=== PATIENT | female | born 1955 | race African-American/Black ===

== ENCOUNTER 2018-08-11 14:09 | Emergency (ER) | payer MEDICARE, OTHER ==
[~2018-08-11 14:09] MED LIST: ALPR2TAB2 PO; NIFE30TA91 PO
[2018-08-11 14:33] LABS: BASOPHILS % (AUTO) 0.3 % (0.0-5.0); EOSINOPHILS % (AUTO) 0.3 % (0.0-8.0); HEMATOCRIT 39.6 % (36-48); LYMPHOCYTES % (AUTO) 15.9 % (21.0-51.0); MEAN CORPUSCULAR HEMOGLOBIN 31.5 pg (27.0-33.0); MEAN CORPUSCULAR HGB CONC 34.2 g/dL (32.0-36.0); MONOCYTES % (AUTO) 8.4 % (3.0-13.0); NEUTROPHILS % (AUTO) 75.1 % (40.0-77.0); NUCLEATED RED BLOOD CELLS 0.1 % (0.0-0.19); PLATELET COUNT (AUTO) 300 K/uL (130-400); RED BLOOD CELL COUNT(AUTO) 4.31 MIL/uL (4.00-5.50); RED CELL DISTRIBUTION WIDTH 12.3 % (11.0-15.5); WHITE BLOOD COUNT (AUTO) 9.2 K/uL (4.8-10.8)
[2018-08-11] MEDS ORDERED: ONDANSETRON ODT 4 MG TAB ONE (14:34)
[2018-08-11] MEDS ORDERED: IPRATROPIUM/ALBUTEROL SULFATE 3 ML SOLUTION IH ONE (14:58)
[2018-08-11 15:03] LABS: CREATININE 0.6 mg/dL (0.5-1.5); POTASSIUM 3.3 mmol/L (3.5-5.1)
[2018-08-11 15:07] LABS: ALBUMIN 3.4 g/dL (3.5-5.0); BILIRUBIN,TOTAL 0.4 mg/dL (0.2-1.0)
[2018-08-11] MEDS ORDERED: GUAIFENESIN-CODEINE 5 ML SYRUP ONE (15:08)
[2018-08-11] MEDS ORDERED: METHYLPREDNISOLONE SOD SUCC 125MG/2ML VIAL ONE (15:08)
== END 2018-08-11 17:09 | disposition home or self-care (01) ==
LOC: EDH 14:09
DX: J20.9 Acute bronchitis, unspecified (principal); I10 Essential (primary) hypertension; F41.9 Anxiety disorder, unspecified; Z79.899 Other long term (current) drug therapy; Z72.0 Tobacco use
CPT/HCPCS: 36415; 71046; 80053; 83690; 85025; 87804 ×2; 94640; 96372; 99285; J2930

== ENCOUNTER 2018-08-21 23:29 | Emergency (ER) | payer OTHER ==
[2018-08-22] MEDS ORDERED: IPRATROPIUM/ALBUTEROL SULFATE 3 ML SOLUTION IH ONE (00:22)
[2018-08-22 00:31] LABS: BASOPHILS % (AUTO) 0.7 % (0.0-5.0); HEMATOCRIT 38.6 % (36-48); MEAN CORPUSCULAR HEMOGLOBIN 31.8 pg (27.0-33.0); MEAN CORPUSCULAR HGB CONC 33.8 g/dL (32.0-36.0); MONOCYTES % (AUTO) 5.7 % (3.0-13.0); NEUTROPHILS % (AUTO) 70.6 % (40.0-77.0); PLATELET COUNT (AUTO) 326 K/uL (130-400); RED BLOOD CELL COUNT(AUTO) 4.11 MIL/uL (4.00-5.50); RED CELL DISTRIBUTION WIDTH 12.6 % (11.0-15.5); WHITE BLOOD COUNT (AUTO) 10.7 K/uL (4.8-10.8)
[2018-08-22] MEDS ORDERED: CEPHALEXIN 500 MG CAPSULE ONE (00:31)
[2018-08-22] MEDS ORDERED: KETOROLAC TROMETHAMINE 60 MG/2 ML VIAL ONE (00:31)
[2018-08-22 00:51] LABS: CREATININE 0.7 mg/dL (0.5-1.5); POTASSIUM 4.2 mmol/L (3.5-5.1)
[2018-08-22 00:57] LABS: ALBUMIN 3.3 g/dL (3.5-5.0); BILIRUBIN,TOTAL 0.2 mg/dL (0.2-1.0); TOTAL PROTEIN, SERUM 6.9 g/dL (6.0-8.3)
[2018-08-22 01:33] LABS: B-TYPE NATRIURETIC PEPTIDE 42 pg/mL (0-100)
== END 2018-08-22 04:00 | disposition home or self-care (01) ==
LOC: EDH 23:29
DX: J45.901 Unspecified asthma with (acute) exacerbation (principal); H65.02 Acute serous otitis media, left ear; R51 Headache; I10 Essential (primary) hypertension; Z72.0 Tobacco use
CPT/HCPCS: 36415; 71045; 80053; 83880; 84484; 85025; 93005; 94640; 96372; 99284; J1885

== ENCOUNTER 2019-01-31 12:35 | Inpatient (IN) | payer OTHER ==
[~2019-01-31] VITALS: Ht 175.3 cm; Wt 62.0 kg
[2019-01-31] MEDS ORDERED: MORPHINE SULFATE 4 MG/1ML SYG ONE (13:18)
[2019-01-31 13:52] LABS: CREATININE 0.6 mg/dL (0.5-1.5); INR 0.95 (0.85-1.15); PARTIAL THROMBOPLASTIN TIME 32.7 SEC (26.3-35.5)
[2019-01-31 13:54] LABS: BASOPHILS % (AUTO) 0.4 % (0.0-5.0); EOSINOPHILS % (AUTO) 0.6 % (0.0-8.0); HEMATOCRIT 37.3 % (36-48); LYMPHOCYTES % (AUTO) 24.7 % (21.0-51.0); MEAN CORPUSCULAR HEMOGLOBIN 32.1 pg (27.0-33.0); MEAN CORPUSCULAR HGB CONC 33.6 g/dL (32.0-36.0); MEAN CORPUSCULAR VOLUME 95.6 fL (79-99); MONOCYTES % (AUTO) 7.2 % (3.0-13.0); NEUTROPHILS % (AUTO) 67.1 % (40.0-77.0); PLATELET COUNT (AUTO) 235 K/uL (130-400); RED CELL DISTRIBUTION WIDTH 13.8 % (11.0-15.5)
[2019-01-31 13:54] LABS: APPEARANCE,URINE Clear (CLEAR); BILIRUBIN,URINE Negative (NEGATIVE); COLOR,URINE Yellow (YELLOW); GLUCOSE, URINE (UA) Negative (NEGATIVE); KETONES,URINE Negative (NEGATIVE); LEUKOCYTE ESTERASE ,URINE Negative (NEGATIVE); NITRATE,URINE Negative (NEGATIVE); OCCULT BLOOD,URINE Negative (NEGATIVE); PROTEIN,URINE Negative (NEGATIVE)
[2019-01-31 13:56] LABS: ALBUMIN 3.5 g/dL (3.5-5.0); BILIRUBIN,TOTAL 0.5 mg/dL (0.2-1.0); TOTAL PROTEIN, SERUM 7.1 g/dL (6.0-8.3)
[2019-01-31] MEDS ORDERED: FENTANYL CITRATE PF 50 MCG/1 ML 2ML VIAL ONE (14:30)
[2019-01-31] MEDS ORDERED: ONDANSETRON HCL 4 MG/2 ML VIAL IVP PRN (15:15)
[2019-01-31] MEDS ORDERED: ALPRAZOLAM 0.25 MG TABLET PO PRN (15:15)
[2019-01-31] MEDS ORDERED: LABETALOL 20 MG/4 ML DISP.SYRIN IV PRN (15:15)
[2019-01-31] MEDS ORDERED: ACETAMINOPHEN 325 MG TAB PO PRN (15:15)
[2019-01-31] MEDS ORDERED: MORPHINE SULFATE 2 MG/ML 1ML SYG ONE (16:36)
[2019-01-31] MEDS ORDERED: ALPRAZOLAM 0.25 MG TABLET ONE (16:36)
[2019-01-31] MEDS: ASPIRIN 81MG TAB.CHEW PO SCH ×2 (17:00→21:46)
[2019-01-31] MEDS: MORPHINE SULFATE 2 MG/ML 1ML SYG IVP PRN ×2 (19:26→21:52)
[2019-01-31] MEDS ORDERED: FLUT16H NASAL (19:52)
[2019-01-31] MEDS ORDERED: ALPR0.5T8 PO (19:52)
[2019-01-31] MEDS ORDERED: IBUP-2077 PO (19:59)
[2019-01-31] MEDS ORDERED: ALBU18HF7 IH (19:59)
[2019-01-31 20:00] VITALS: BP 186/84
[2019-01-31] MEDS ORDERED: IBUPROFEN 800 MG TAB PO PRN (20:30)
[2019-01-31] MEDS: FLUTICASONE PROPIONATE 50MCG/SPRAY 16 GM BOTTLE EN SCH (21:00)
[2019-01-31] MEDS ORDERED: ALPRAZOLAM 0.5 MG TABLET PO SCH (21:00)
[2019-01-31 21:40] VITALS: BP 177/89
[2019-01-31] MEDS: ALPRAZOLAM 0.5 MG TABLET PO SCH (21:46)
[2019-01-31] MEDS: METOPROLOL TARTRATE 25 MG TAB PO SCH (21:47)
[2019-01-31] MEDS: ATORVASTATIN CALCIUM 20 MG TABLET PO SCH (21:47)
[2019-01-31 23:33] VITALS: BP 176/95
--- NOTE | 2019-01-31 23:50 | NUR ---
NOTE REMINDED PATIENT TO START FASTING AFTER MIDNIGHT ORDERED BY SURGEON FOR POSSIBLE SURGERY TOMORROW. PATIENT ACKNOWLEDGED UNDERSTANDING.
[2019-02-01] VITALS (23 sets, daily range): BP systolic 112–171; BP diastolic 63–92
[2019-02-01] MEDS: MORPHINE SULFATE 2 MG/ML 1ML SYG IVP PRN ×5 (00:07→20:14)
[2019-02-01 02:46] LABS: CHOLESTEROL 169 mg/dL (<200); HDL CHOLESTEROL 132 mg/dL (35-85); LDL DIRECT 70 mg/dL (0-99); TRIGLYCERIDES 44 mg/dL (30-200)
--- NOTE | 2019-02-01 06:05 | NUR ---
NOTE CONTACTED DR. CLAY TO NOTIFY ABOUT PENDING CARDIAC CLEARANCE AND 2DECHO TO BE DONE AND TO OBTAIN ORDERS FOR PROCEDURE HE PLANS TO DO ON PATIENT. RECEIVED ORDERS FOR ORIF OF RIGHT HIP NAIL FOR 1100 TODAY. INFORMED CENTRAL OFFICE ASSOCIATE CASSI MORE RN OF NEW ORDERS AND PENDING CLEARANCE. INFORMED PATIENT.
--- NOTE | 2019-02-01 07:35 | NUR ---
NOTE PATIENT SIGNED CONSENT FOR PROCEDURE. ALSO ASKED HER ABOUT HER BELONGINGS/VALUABLES TO BE PUT AWAY WITH SECURITY OR WILL FAMILY TAKE CUSTODY OF THEM WHILE SHE IS IN PROCEDURE. SHE SAID FAMILY WILL COME TO PICK THEM UP.
[2019-02-01] MEDS: ENOXAPARIN SODIUM 40 MG/0.4 ML SYRINGE SQ SCH (08:10)
[2019-02-01] MEDS: METOPROLOL TARTRATE 25 MG TAB PO SCH ×2 (08:33→20:15)
[2019-02-01] MEDS: FLUTICASONE PROPIONATE 50MCG/SPRAY 16 GM BOTTLE EN SCH ×2 (09:00→20:15)
[2019-02-01] MEDS: ASPIRIN 81MG TAB.CHEW PO SCH (09:00)
[2019-02-01] MEDS ORDERED: VENTOLIN HFA IH PRN (09:00)
[2019-02-01] MEDS: ALPRAZOLAM 0.5 MG TABLET PO SCH ×3 (09:00→20:15)
[2019-02-01] MEDS: NIFEDIPINE ER 30 MG TAB PO SCH (09:00)
--- NOTE | 2019-02-01 10:30 | NUR ---
DC Plan Attempt Patient currently not in room. Patient was taken down for a procedure. CM to revisit. CD
[2019-02-01] MEDS ORDERED: SUCCINYLCHOLINE 200MG/10ML SYR ONE (10:31)
[2019-02-01] MEDS ORDERED: LIDOCAINE PF 2% 5ML ABBOJECT ONE (10:31)
[2019-02-01] MEDS ORDERED: DEXAMETHASONE SOD PHOSPHATE 10MG/ML 1ML VIAL ONE (10:31)
[2019-02-01] MEDS ORDERED: PROPOFOL 10 MG/ML 20ML VIAL IV ONE (10:32)
[2019-02-01] MEDS ORDERED: NEOSTIGMINE 5MG/5ML SYR IV ONE ×2 (10:32→14:11)
[2019-02-01] MEDS ORDERED: MIDAZOLAM HCL 1 MG/ML 2ML VIAL ONE (10:32)
[2019-02-01] MEDS ORDERED: GLYCOPYRROLATE 1 MG/5 ML SYRINGE ONE ×2 (10:32→14:11)
[2019-02-01] MEDS ORDERED: FENTANYL CITRATE PF 50 MCG/1 ML 2ML VIAL ONE ×2 (10:33→14:16)
[2019-02-01] MEDS ORDERED: ROCURONIUM 10MG/1ML SYR 10 MG/ML ML ONE ×2 (10:33→13:54)
[2019-02-01] MEDS ORDERED: ONDANSETRON HCL 4 MG/2 ML VIAL ONE (10:33)
[2019-02-01] MEDS ORDERED: ROPIVACAINE 0.5% 5MG/ML 30ML IJ ONE (10:39)
[2019-02-01] MEDS ORDERED: EPHEDRINE SULFATE 50 MG/ML AMPULE ONE (10:42)
[2019-02-01] MEDS ORDERED: LACTATED RINGERS 1000ML 1,000 ML IV ONE (10:50)
--- NOTE | 2019-02-01 11:07 | NUR ---
ANESTHESIA consent discussed with pt by Boyd Ordoñez CRNA signed by pt Addendum: 02/01/19 at 1109 by CHANTEL TRIPP RN RN Amended: Links added.
[2019-02-01] MEDS ORDERED: CEFAZOLIN SODIUM 1 GM VIAL ONE (12:52)
--- NOTE | 2019-02-01 13:46 | NUR ---
SS Referral Pt in surgery, will revisit when appropriate
[2019-02-01] MEDS ORDERED: KETOROLAC TROMETHAMINE 30MG/ML ONE ×2 (14:14→14:21)
[2019-02-01] MEDS ORDERED: DIPHENHYDRAMINE HCL 25 MG CAPSULE PO PRN (14:30)
[2019-02-01] MEDS ORDERED: TRAMADOL HCL 50 MG TABLET PO PRN (14:30)
[2019-02-01] MEDS ORDERED: CALCIUM CARBONATE 500 MG TABLET PO PRN (14:30)
[2019-02-01] MEDS: CEFAZOLIN SODIUM 1 GM VIAL IVP SCH ×2 (14:30→22:15)
[2019-02-01] MEDS: ACETAMINOPHEN EXTRA STRENGTH 500 MG TABLET PO SCH ×2 (14:30→22:17)
[2019-02-01] MEDS ORDERED: POTASSIUM CHLORIDE 20MEQ/100ML 100 ML IV PRN (14:30)
[2019-02-01] MEDS ORDERED: POTASSIUM CHLORIDE 20 MEQ ERTAB PO PRN (14:30)
[2019-02-01] MEDS ORDERED: FERROUS FUMARATE 324 MG TABLET PO PRN (14:30)
[2019-02-01] MEDS ORDERED: DiphenhydrAMINE HCL 50 MG/ML VIAL IVP PRN (14:30)
[2019-02-01] MEDS ORDERED: LIDOCAINE HCL-MPF 1% 2ML VIAL IVP PRN (14:30)
[2019-02-01] MEDS ORDERED: POTASSIUM CHLORIDE 10% ELIXIR 20 MEQ/15 ML UDCUP PO PRN (14:30)
[2019-02-01] MEDS ORDERED: MEPERIDINE-PF 25 MG/ML SYG ONE (15:11)
[2019-02-01] MEDS: SODIUM CHLORIDE 0.9% 1000ML 1,000 ML IV SCH ×2 (15:59→23:37)
[2019-02-01] MEDS: ATORVASTATIN CALCIUM 20 MG TABLET PO SCH (20:15)
[2019-02-02] MEDS: HYDROCODONE/ACETAMINOPHEN 5/325 MG TAB PO PRN ×3 (00:14→19:13)
[2019-02-02 03:00] VITALS: BP 117/74
[2019-02-02 05:03] LABS: HEMATOCRIT 29.1 % (36-48); MEAN CORPUSCULAR HGB CONC 33.6 g/dL (32.0-36.0); MEAN CORPUSCULAR VOLUME 95.2 fL (79-99); PLATELET COUNT (AUTO) 184 K/uL (130-400); RED BLOOD CELL COUNT(AUTO) 3.06 MIL/uL (4.00-5.50); RED CELL DISTRIBUTION WIDTH 13.2 % (11.0-15.5)
[2019-02-02] MEDS: ACETAMINOPHEN EXTRA STRENGTH 500 MG TABLET PO SCH ×3 (05:06→22:28)
[2019-02-02 05:15] LABS: INR 0.98 (0.85-1.15); PROTHROMBIN TIME 10.3 SEC (9.6-11.6)
[2019-02-02 05:24] LABS: CREATININE 0.6 mg/dL (0.5-1.5); POTASSIUM 4.2 mmol/L (3.5-5.1)
[2019-02-02] MEDS ORDERED: CEFAZOLIN SODIUM 1 GM VIAL ONE (06:49)
[2019-02-02 08:00] VITALS: BP 146/83
[2019-02-02] MEDS ORDERED: ENOXAPARIN SODIUM 40 MG/0.4 ML SYRINGE SQ SCH (09:00)
[2019-02-02] MEDS: NIFEDIPINE ER 30 MG TAB PO SCH (09:19)
[2019-02-02] MEDS: POLYETHYLENE GLYCOL 3350 17 GM POWD.PACK PO SCH (09:19)
[2019-02-02] MEDS: ALPRAZOLAM 0.5 MG TABLET PO SCH ×3 (09:20→19:11)
[2019-02-02] MEDS: ASPIRIN 81MG TAB.CHEW PO SCH (09:20)
[2019-02-02] MEDS: ENOXAPARIN SODIUM 40 MG/0.4 ML SYRINGE SQ SCH (09:20)
[2019-02-02] MEDS: METOPROLOL TARTRATE 25 MG TAB PO SCH ×2 (09:20→19:10)
[2019-02-02] MEDS: FLUTICASONE PROPIONATE 50MCG/SPRAY 16 GM BOTTLE EN SCH ×2 (09:21→20:19)
[2019-02-02 11:00] VITALS: BP 144/73
[2019-02-02] MEDS: PSYLLIUM SEED 1 EACH PACKET PO SCH (12:06)
[2019-02-02] MEDS: SODIUM CHLORIDE 0.9% 1000ML 1,000 ML IV SCH (12:07)
--- NOTE | 2019-02-02 13:24 | NUR ---
DC PLAN VISITED WITH PATIENT. PATIENT LIVES WITH CHILDREN. INDEPENDENT ABLE TO PERFORM ADL'S. PATIENT HAS NO SERVICES OR DME'S. ABHINAV SIGNED FOR TIARA. INFO SENT. DAVID DONE AND SENT. PENDING INSURANCE AUTH. Addendum: 02/02/19 at 1325 by RADHA BERGMAN RN CM Amended: Links added.
[2019-02-02 16:00] VITALS: BP 129/63
[2019-02-02] MEDS: ATORVASTATIN CALCIUM 20 MG TABLET PO SCH (19:10)
[2019-02-02 19:30] VITALS: BP 146/72
[2019-02-02 23:30] VITALS: BP 129/64
[2019-02-03] MEDS: HYDROCODONE/ACETAMINOPHEN 5/325 MG TAB PO PRN (01:20)
[2019-02-03 04:00] VITALS: BP 146/69
[2019-02-03] MEDS: OXYCODONE HCL 5 MG TAB PO PRN ×3 (04:20→15:22)
[2019-02-03 04:25] LABS: HEMATOCRIT 27.6 % (36-48); MEAN CORPUSCULAR HEMOGLOBIN 33.2 pg (27.0-33.0); MEAN CORPUSCULAR HGB CONC 34.8 g/dL (32.0-36.0); MEAN CORPUSCULAR VOLUME 95.4 fL (79-99); PLATELET COUNT (AUTO) 175 K/uL (130-400); RED BLOOD CELL COUNT(AUTO) 2.89 MIL/uL (4.00-5.50); RED CELL DISTRIBUTION WIDTH 13.1 % (11.0-15.5); WHITE BLOOD COUNT (AUTO) 5.5 K/uL (4.8-10.8)
[2019-02-03 04:34] LABS: INR 0.95 (0.85-1.15)
[2019-02-03 04:48] LABS: CREATININE 0.5 mg/dL (0.5-1.5); POTASSIUM 3.6 mmol/L (3.5-5.1)
[2019-02-03] MEDS: ACETAMINOPHEN EXTRA STRENGTH 500 MG TABLET PO SCH ×3 (05:36→20:59)
[2019-02-03 07:45] VITALS: BP 149/86
[2019-02-03] MEDS: FLUTICASONE PROPIONATE 50MCG/SPRAY 16 GM BOTTLE EN SCH ×2 (09:03→20:59)
[2019-02-03] MEDS: METOPROLOL TARTRATE 25 MG TAB PO SCH ×2 (09:04→20:59)
[2019-02-03] MEDS: ASPIRIN 81MG TAB.CHEW PO SCH (09:04)
[2019-02-03] MEDS: NIFEDIPINE ER 30 MG TAB PO SCH (09:04)
[2019-02-03] MEDS: POLYETHYLENE GLYCOL 3350 17 GM POWD.PACK PO SCH (09:04)
[2019-02-03] MEDS: ALPRAZOLAM 0.5 MG TABLET PO SCH ×3 (09:05→20:57)
[2019-02-03] MEDS: ENOXAPARIN SODIUM 40 MG/0.4 ML SYRINGE SQ SCH (09:05)
[2019-02-03] MEDS: NICOTINE 21 MG/ 24 HR PATCH TD SCH (09:05)
[2019-02-03 11:00] VITALS: BP 141/86
[2019-02-03] MEDS: PSYLLIUM SEED 1 EACH PACKET PO SCH (12:38)
[2019-02-03] MEDS: BISACODYL 5 MG TABLET.DR PO PRN (12:40)
[2019-02-03] MEDS ORDERED: BISACODYL 5 MG TABLET.DR PO ONE (12:40)
[2019-02-03 16:00] VITALS: BP 150/76
--- NOTE | 2019-02-03 18:26 | NUR ---
Attempted to call report to [facility]. She stated that since pt has not had a BM since 01/31, they will not accept until she has a BM. Will administer IN dulcolax.
[2019-02-03] MEDS ORDERED: BISACODYL 10 MG SUPP.RECT RC ONE (19:55)
[2019-02-03 20:00] VITALS: BP 147/77
[2019-02-03] MEDS: ATORVASTATIN CALCIUM 20 MG TABLET PO SCH (20:57)
[2019-02-03] MEDS: MORPHINE SULFATE 2 MG/ML 1ML SYG IVP PRN (21:05)
--- NOTE | 2019-02-03 22:30 | NUR ---
NOTE PATIENT HAS GONE TO BATHROOM ABOUT 3 TIMES. SHE SAYS SHE ONLY URINATED AND NOT HAD A BM YET. GAVE HER SOME PRUINE JUICE AND DRANK IT. WILL RE-EVALUATE.
[2019-02-03 23:21] VITALS: BP 119/68
[2019-02-04 03:35] VITALS: BP 156/77
[2019-02-04 04:11] LABS: HEMATOCRIT 29.5 % (36-48); MEAN CORPUSCULAR HEMOGLOBIN 32.6 pg (27.0-33.0); MEAN CORPUSCULAR HGB CONC 34.6 g/dL (32.0-36.0); MEAN CORPUSCULAR VOLUME 94.2 fL (79-99); PLATELET COUNT (AUTO) 225 K/uL (130-400); RED BLOOD CELL COUNT(AUTO) 3.13 MIL/uL (4.00-5.50); RED CELL DISTRIBUTION WIDTH 13.1 % (11.0-15.5); WHITE BLOOD COUNT (AUTO) 5.2 K/uL (4.8-10.8)
[2019-02-04 04:18] LABS: CREATININE 0.5 mg/dL (0.5-1.5); POTASSIUM 3.7 mmol/L (3.5-5.1)
[2019-02-04 04:20] LABS: INR 0.93 (0.85-1.15); PROTHROMBIN TIME 9.8 SEC (9.6-11.6)
--- NOTE | 2019-02-04 04:55 | NUR ---
NOTE PATIENT REPORTS SHE HAS A VERY SMALL BM THIS LAST TIMES SHE GOT UP TO BATHROOM. SHE FLUSHED IT AND WE WERE UNABLE TO SEE. OFFERED HER MORE PRUINE JUICE AND DULCOLAX TABLETS AND SHE ACCEPTED TO HAVE A GOOD BM.
[2019-02-04] MEDS: BISACODYL 5 MG TABLET.DR PO PRN (05:01)
[2019-02-04] MEDS: ACETAMINOPHEN EXTRA STRENGTH 500 MG TABLET PO SCH ×2 (05:02→15:32)
[2019-02-04 08:00] VITALS: BP 152/92
[2019-02-04] MEDS: FLUTICASONE PROPIONATE 50MCG/SPRAY 16 GM BOTTLE EN SCH (09:59)
[2019-02-04] MEDS: METOPROLOL TARTRATE 25 MG TAB PO SCH (09:59)
[2019-02-04] MEDS: ASPIRIN 81MG TAB.CHEW PO SCH (09:59)
[2019-02-04] MEDS: NICOTINE 21 MG/ 24 HR PATCH TD SCH (09:59)
[2019-02-04] MEDS: NIFEDIPINE ER 30 MG TAB PO SCH (09:59)
[2019-02-04] MEDS: ALPRAZOLAM 0.5 MG TABLET PO SCH ×2 (10:00→15:34)
[2019-02-04] MEDS: ENOXAPARIN SODIUM 40 MG/0.4 ML SYRINGE SQ SCH (10:01)
[2019-02-04] MEDS: POLYETHYLENE GLYCOL 3350 17 GM POWD.PACK PO SCH (10:02)
[2019-02-04] MEDS: HYDROCODONE/ACETAMINOPHEN 5/325 MG TAB PO PRN (10:06)
[2019-02-04 11:52] VITALS: BP 132/75
[2019-02-04] MEDS: PSYLLIUM SEED 1 EACH PACKET PO SCH (12:00)
[2019-02-04] MEDS ORDERED: BISACODYL 10 MG SUPP.RECT RC PRN (14:30)
--- NOTE | 2019-02-04 16:00 | NUR ---
DISCHARGE NURSE REPORT GIVEN TO MICHELET DESHPANDE OF [facility]. INFORMED MICHELET DESHPANDE FOLLOW-UP APPOINTMENT WITH DR. CLAY AND CARDIOLOGY PENDING TO BE SCHEDULED. MICHELET DESHPANDE CONFIRMED SHE RECEIVED MEDICATION RECONCILIATION FORM. ORIGINAL RX FROM DR. CLAY (TYLENOL#3, ELIQUIS, TRAMADOL, AND SURFAK) PLACED IN PATIENT CHART COPY. DISCHARGE INSTRUCTIONS PROVIDED TO PATIENT REGARDING RX TEACHING, DR. CLAY DISCHARGE INSTRUCTIONS, FOLLOW-UP APPOINTMENTS PENDING TO BE SCHEDULED WITH DR. CLAY AND HEADHUNTER, WARNING S/S. PATIENT VERBALIZED UNDERSTANDING OF DISCHARGE TEACHING. NOTED RIGHT HIP DRESSING TO BE SOILED. REMOVED RIGHT HIP DRESSING, NO DRAINAGE NOTED. RIGHT HIP INCISION SITES X3, APPROXIMATED, LILIAN X14 INTACT, NO REDNESS OR SWELLING NOTED. CLEANSED RIGHT HIP INCISION SITE WITH NS, PATTED DRY, APPLIED BETADINE, COVERED WITH STERILE 4X4 GAUZE, SECURED WITH MEDIPORE TAPE, REAPPLIED BRAULIO HOSE STOCKING AFTER DRESSING CHANGE. REMOVED 20G IV FROM RIGHT AC, CATHETER INTACT. AWAITING [facility] ER TRANSPORT TO CIRCULATION WORKER PATIENT.
== END 2019-02-04 16:58 | DRG 482 ==
LOC: EDH 12:35 → EDHIP 14:40 → 4BH 18:34
PROVIDERS: ADMIT Internal Medicine Pulmonary Disease; ATTEND Internal Medicine Pulmonary Disease
PROC: 0QS636Z Reposition Right Upper Femur with Intramedullary Internal Fixation Device, Percutaneous Approach (ICD-10-PCS; principal; 2019-02-01 12:35)
DX: S72.141A Displaced intertrochanteric fracture of right femur, initial encounter for closed fracture (principal); S72.21XA Displaced subtrochanteric fracture of right femur, initial encounter for closed fracture; I10 Essential (primary) hypertension; F32.9 Major depressive disorder, single episode, unspecified; F10.10 Alcohol abuse, uncomplicated; R74.8 Abnormal levels of other serum enzymes; F17.200 Nicotine dependence, unspecified, uncomplicated; F41.9 Anxiety disorder, unspecified; J44.9 Chronic obstructive pulmonary disease, unspecified; I35.8 Other nonrheumatic aortic valve disorders; W01.0XXA Fall on same level from slipping, tripping and stumbling without subsequent striking against object, initial encounter; Y93.9 Activity, unspecified; Y92.89 Other specified places as the place of occurrence of the external cause; Y99.8 Other external cause status; Z71.6 Tobacco abuse counseling; Z83.3 Family history of diabetes mellitus; Z82.49 Family history of ischemic heart disease and other diseases of the circulatory system
CPT/HCPCS: 36415; 71045; 73502; 73503; 80048; 80053; 80061; 81003; 82550; 84484; 85025; 85027; 85610; 85730; 86850; 86900; 86901; 93005; 93306; 97039; G0378; J0330; J0690; J1100; J1650; J1885; J2001; J2175; J2250; J2270; J2405; J2704; J2710; J2795; J3010; J3490; J7030; J7120

== ENCOUNTER → 2019-02-14 | Outpatient (CLI) | payer OTHER ==
[~2019-02-14] MED LIST changes: +ALBU18HF7 IH; +ALPR0.5T8 PO; -ALPR2TAB2 PO; +FLUT16H NASAL; +IBUP-2077 PO
== END | disposition home or self-care (01) ==
LOC: RAH 12:38
PROVIDERS: ATTEND Otolaryngology Plastic Surgery within the Head & Neck
DX: K04.7 Periapical abscess without sinus (principal); K13.79 Other lesions of oral mucosa
CPT/HCPCS: 70486

== ENCOUNTER 2019-04-29 01:25 | Inpatient (IN) | payer OTHER ==
[~2019-04-29] VITALS: Ht 175.3 cm; Wt 56.2 kg
[2019-04-29 01:44] LABS: BASOPHILS % (AUTO) 1.1 % (0.0-5.0); EOSINOPHILS % (AUTO) 3.7 % (0.0-8.0); HEMATOCRIT 43.6 % (36-48); LYMPHOCYTES % (AUTO) 18.4 % (21.0-51.0); MEAN CORPUSCULAR HEMOGLOBIN 32.2 pg (27.0-33.0); MEAN CORPUSCULAR HGB CONC 34.2 g/dL (32.0-36.0); MEAN CORPUSCULAR VOLUME 94.1 fL (79-99); MONOCYTES % (AUTO) 5.8 % (3.0-13.0); NUCLEATED RED BLOOD CELLS 0.1 % (0.0-0.19); PLATELET COUNT (AUTO) 199 K/uL (130-400); RED BLOOD CELL COUNT(AUTO) 4.63 MIL/uL (4.00-5.50); RED CELL DISTRIBUTION WIDTH 14.3 % (11.0-15.5); WHITE BLOOD COUNT (AUTO) 5.2 K/uL (4.8-10.8)
[2019-04-29] MEDS ORDERED: ONDANSETRON HCL 4 MG/2 ML VIAL ONE (01:57)
[2019-04-29] MEDS ORDERED: SODIUM CHLORIDE 0.9% 1000ML 1,000 ML IV ONE ×2 (01:57→02:34)
[2019-04-29] MEDS ORDERED: FAMOTIDINE/PF 20 MG/2 ML VIAL IV ONE (01:57)
[2019-04-29 01:58] LABS: ALBUMIN 3.3 g/dL (3.5-5.0); BILIRUBIN,TOTAL 9.1 mg/dL (0.2-1.0); CREATININE 0.6 mg/dL (0.5-1.5); TOTAL PROTEIN, SERUM 7.2 g/dL (6.0-8.3)
[2019-04-29 02:04] LABS: POTASSIUM 2.9 mmol/L (3.5-5.1)
[2019-04-29] MEDS ORDERED: HYDRALAZINE HCL 20 MG/ML VIAL ONE (03:08)
[2019-04-29] MEDS ORDERED: POTASSIUM CHLORIDE 20MEQ/100ML 100 ML IV ONE (03:08)
[2019-04-29] MEDS ORDERED: MORPHINE SULFATE 2 MG/ML 1ML SYG ONE (03:08)
[2019-04-29 03:53] LABS: APPEARANCE,URINE Clear (CLEAR); BILIRUBIN,URINE Small (NEGATIVE); COLOR,URINE Dark Yellow (YELLOW); GLUCOSE, URINE (UA) Negative (NEGATIVE); KETONES,URINE Negative (NEGATIVE); LEUKOCYTE ESTERASE ,URINE Trace (NEGATIVE); NITRATE,URINE Negative (NEGATIVE); OCCULT BLOOD,URINE Negative (NEGATIVE); PROTEIN,URINE Negative (NEGATIVE)
[2019-04-29] MEDS ORDERED: ONDANSETRON HCL 4 MG/2 ML VIAL IVP PRN (04:00)
[2019-04-29] MEDS ORDERED: NS-20 MEQ KCL 1000ML 1,000 ML IV SCH (04:00)
[2019-04-29 04:10] VITALS: BP 148/82
[2019-04-29 04:17] LABS: BACTERIA,URINE None Seen /HPF (None Seen); MUCUS,URINE Few LPF (None Seen); RBC,URINE 0-1 /HPF (0-1); SQUAMOUS EPITHELIAL CELL,UR Few /HPF (0-2); WBC,URINE 0-1 /HPF (0-1)
[2019-04-29] MEDS ORDERED: MORPHINE SULFATE 4 MG/1ML SYG IV PRN (04:30)
[2019-04-29 08:00] VITALS: BP 154/79
[2019-04-29] MEDS ORDERED: LACTATED RINGERS 1000ML 1,000 ML IV SCH (09:30)
--- NOTE | 2019-04-29 09:42 | NUR ---
POTASSIUM Level is 2.9. Patient was on NS w/20mEq KCl/L but Dr. Covarrubias has changed IVFs to LR Addendum: 04/29/19 at 0957 by CATRACHITO BURROWS RN RN CONTINUATION OF NOTE at 200mL/hr. HDr. Covarrubias was made aware potassium is low at 2.9 and that previous IVFs had potassium added. Stated to contact attending physician for the potassium issue. Dr. Blackmon was paged; stated to go back to NS with 20mE/L and increase the rate to 200mL/hr.
--- NOTE | 2019-04-29 10:01 | NUR ---
IVFs Increased NS w/20mEq KCl at 200mL/hr as ordered by Dr. Blackmon.
[2019-04-29 10:03] LABS: INR 0.99 (0.85-1.15); PROTHROMBIN TIME 10.4 SEC (9.6-11.6)
[2019-04-29] MEDS ORDERED: LIDOCAINE HCL-MPF 1% 2ML VIAL IVP PRN (11:30)
[2019-04-29] MEDS ORDERED: LORAZEPAM 2 MG/ML 1 ML VIAL IVP PRN (11:30)
[2019-04-29] MEDS ORDERED: POTASSIUM CHLORIDE 20MEQ/100ML 100 ML IV PRN (11:30)
[2019-04-29] MEDS ORDERED: POTASSIUM CHLORIDE 10% ELIXIR 20 MEQ/15 ML UDCUP PO PRN (11:30)
--- NOTE | 2019-04-29 11:38 | NUR ---
Nutrition Intervention: Nutrition consult due to uncontrolled N/V, dehydration. Pt. admitted with Dx of Pancreatitis. Pt. reports has lost 13#(10% of UBW) in 3 months due to decreased appetite. Pt. NPO. Pt. with no c/o N/V at this time. Pt. reports is hungry and ready to eat food. Labs reviewed(Alb 3.3, T. Bili 9.1, AST/ALT 142/309, alk PHOS 617, K 2.9, Cl 99). LBM: 04/28/19, loose. SR-17, jaundice. BMI: 18.3, underweight for age. Pt. educated on Pancreatitis diet and provided with education material. Pt. verbalized understanding. Recommendations: 1) When medically feasible, rec. Clear Liquids and advance as tolerated to Low Fat Soft [place] diet. 2) Pancreatitis diet education given to patient. 3) Continue to monitor pt's nutritional status and diet advancement. 4) Consult RD as nutrition concerns arise. Addendum: 04/29/19 at [address] Amended: Links added.
[2019-04-29] MEDS ORDERED: COMPOUND IV REFRIGERATED 1 EACH IVSOLN MISC PRN (11:45)
[2019-04-29 12:00] VITALS: BP 163/80
[2019-04-29] MEDS: NS-20 MEQ KCL 1000ML 1,000 ML IV SCH ×3 (12:52→20:08)
[2019-04-29 16:00] VITALS: BP 194/92
[2019-04-29 19:35] VITALS: BP 181/76
[2019-04-29] MEDS: HYDRALAZINE HCL 20 MG/ML VIAL IV PRN (20:03)
[2019-04-29 23:30] VITALS: BP 177/81
[2019-04-30] VITALS (7 sets, daily range): BP systolic 144–187; BP diastolic 76–101
[2019-04-30] MEDS: NS-20 MEQ KCL 1000ML 1,000 ML IV SCH ×2 (00:05→02:04)
[2019-04-30] MEDS: HYDRALAZINE HCL 20 MG/ML VIAL IV PRN ×2 (02:04→11:54)
[2019-04-30 05:54] LABS: BASOPHILS % (AUTO) 0.5 % (0.0-5.0); EOSINOPHILS % (AUTO) 2.5 % (0.0-8.0); HEMATOCRIT 40.3 % (36-48); LYMPHOCYTES % (AUTO) 19.6 % (21.0-51.0); MEAN CORPUSCULAR HEMOGLOBIN 31.8 pg (27.0-33.0); MEAN CORPUSCULAR HGB CONC 33.2 g/dL (32.0-36.0); MEAN CORPUSCULAR VOLUME 95.6 fL (79-99); MONOCYTES % (AUTO) 6.1 % (3.0-13.0); NEUTROPHILS % (AUTO) 71.3 % (40.0-77.0); NUCLEATED RED BLOOD CELLS 0.1 % (0.0-0.19); PLATELET COUNT (AUTO) 175 K/uL (130-400); RED BLOOD CELL COUNT(AUTO) 4.22 MIL/uL (4.00-5.50); RED CELL DISTRIBUTION WIDTH 15.2 % (11.0-15.5); WHITE BLOOD COUNT (AUTO) 5.6 K/uL (4.8-10.8)
[2019-04-30 06:09] LABS: ALBUMIN 2.7 g/dL (3.5-5.0); BILIRUBIN,DIRECT 1.4 mg/dL (0.0-0.3); BILIRUBIN,TOTAL 2.1 mg/dL (0.2-1.0); CREATININE 0.5 mg/dL (0.5-1.5); MAGNESIUM 1.8 mg/dL (1.80-2.40); PHOSPHORUS 3.1 mg/dL (2.5-4.9); POTASSIUM 3.7 mmol/L (3.5-5.1)
[2019-04-30] MEDS ORDERED: DEXTROSE 50%-WATER 50 ML DISP.SYRIN IV ONE (06:25)
[2019-04-30] MEDS ORDERED: D5 NS WITH 20 mEq KCl 1000ML IV SCH (07:00)
[2019-04-30] MEDS ORDERED: MAGNESIUM 2GM PREMIX 50ML 50 ML IV PRN (07:00)
[2019-04-30] MEDS ORDERED: DEXTROSE 50%-WATER 50 ML DISP.SYRIN IV PRN (07:00)
[2019-04-30] MEDS ORDERED: D5 NS WITH 20 mEq KCl 1000ML 1,000 ML IV SCH (07:30)
--- NOTE | 2019-04-30 08:48 | NUR ---
TAKEN TO NUCLEAR MED AT THIS TIME FOR HIDA SCAN. LEFT THE UNIT VIA W/C IN STABLE CONDITION.
[2019-04-30] MEDS ORDERED: M.V.I. IV [ADULT] 10 ML, FOLIC ACID 1 MG, THIAMINE HCL 100 MG in SODIUM CHLORIDE 0.9% 1... IV SCH (09:00)
--- NOTE | 2019-04-30 10:08 | NUR ---
RETURNED FROM [employer].
[2019-04-30 10:26] LABS: ABG HCO3 19.7 mmol/L (21.0-28.0); ABG OXYGEN SATURATION 94.7 % (95.0-99.0); ABG PCO2 33 mmHg (32-45)
[2019-04-30] MEDS: NIFEDIPINE ER 30 MG TAB PO SCH (10:36)
--- NOTE | 2019-04-30 15:40 | NUR ---
DR HARDWICK WAS CALLED WITH THE HIDA SCAN RESULT AND HE REQUESTED THAT THE RESULT BE REPORTED TO THE SURGEON HE IS NOT GOING TO PERFORM ANY PROCEDURE.
[2019-04-30] MEDS ORDERED: HYDROMORPHONE HCL 0.5 MG/0.5 ML ML IVP PRN (15:45)
[2019-04-30] MEDS ORDERED: ZOSYN 3.375GM+NS 50ML 50 ML IV SCH (15:45)
--- NOTE | 2019-04-30 16:43 | NUR ---
HIDA SCAN RESULT WAS REPORTED TO DR DE SANTIAGO. NEW ORDER WAS RECEIVED AND WAS CARRIED OUT.
[2019-04-30] MEDS: ALBUTEROL SULFATE 0.083% 2.5 MG/3 ML INH IH PRN (18:46)
--- NOTE | 2019-04-30 19:51 | NUR ---
D/C PLAN CM spoke to pt regarding d/c planning. Pt states she lives with children and grandchildren. Denies having provider services. States she occasionally pays someone to assist in care. Pt has wk at home. Plan to return to home. CM to f/u Addendum: 04/30/19 at 3 by KARLIE RAMOS CM Amended: Links added.
[2019-04-30] MEDS: ZOSYN 3.375GM+NS 50ML 50 ML IV SCH (20:24)
[2019-04-30] MEDS: ALPRAZOLAM 1 MG TAB PO SCH (20:45)
[2019-04-30] MEDS: FLUTICASONE PROPIONATE 50MCG/SPRAY 16 GM BOTTLE NS SCH (20:46)
[2019-04-30] MEDS: LABETALOL 20 MG/4 ML DISP.SYRIN IV PRN (20:47)
[2019-05-01] MEDS: D5 NS WITH 20 mEq KCl 1000ML 1,000 ML IV SCH ×2 (01:49→21:29)
[2019-05-01 03:35] VITALS: BP 143/81
[2019-05-01] MEDS: ZOSYN 3.375GM+NS 50ML 50 ML IV SCH ×3 (04:21→21:23)
[2019-05-01 06:10] LABS: HEMATOCRIT 43.2 % (36-48); MEAN CORPUSCULAR HEMOGLOBIN 31.9 pg (27.0-33.0); MEAN CORPUSCULAR HGB CONC 33.6 g/dL (32.0-36.0); MEAN CORPUSCULAR VOLUME 94.9 fL (79-99); PLATELET COUNT (AUTO) 201 K/uL (130-400); RED BLOOD CELL COUNT(AUTO) 4.56 MIL/uL (4.00-5.50); RED CELL DISTRIBUTION WIDTH 14.7 % (11.0-15.5); WHITE BLOOD COUNT (AUTO) 4.3 K/uL (4.8-10.8)
[2019-05-01 06:23] LABS: INR 0.95 (0.85-1.15); PARTIAL THROMBOPLASTIN TIME 33.7 SEC (26.3-35.5)
[2019-05-01 06:26] LABS: ALBUMIN 3.1 g/dL (3.5-5.0); BILIRUBIN,TOTAL 1.9 mg/dL (0.2-1.0); CREATININE 0.5 mg/dL (0.5-1.5); MAGNESIUM 1.9 mg/dL (1.80-2.40); PHOSPHORUS 3.5 mg/dL (2.5-4.9); POTASSIUM 3.6 mmol/L (3.5-5.1); TOTAL PROTEIN, SERUM 6.9 g/dL (6.0-8.3)
[2019-05-01] MEDS: ALBUTEROL SULFATE 0.083% 2.5 MG/3 ML INH IH PRN ×2 (06:30→18:24)
[2019-05-01 07:00] VITALS: BP 163/89
[2019-05-01] MEDS: FLUTICASONE PROPIONATE 50MCG/SPRAY 16 GM BOTTLE NS SCH ×2 (10:20→21:27)
[2019-05-01] MEDS: NIFEDIPINE ER 30 MG TAB PO SCH (10:20)
[2019-05-01] MEDS: ALPRAZOLAM 1 MG TAB PO SCH ×3 (10:20→21:24)
[2019-05-01] MEDS: ENOXAPARIN SODIUM 40 MG/0.4 ML SYRINGE SQ SCH (10:21)
[2019-05-01 11:00] VITALS: BP 164/96
[2019-05-01] MEDS: POTASSIUM CHLORIDE 20 MEQ ERTAB PO PRN ×2 (12:58→14:41)
[2019-05-01] MEDS: LABETALOL 20 MG/4 ML DISP.SYRIN IV PRN (13:01)
[2019-05-01 16:00] VITALS: BP_SYST 130; BP_SYST 132; BP_DIAS 75; BP_DIAS 92
[2019-05-01 20:00] VITALS: BP 141/75
[2019-05-02] VITALS (26 sets, daily range): BP systolic 122–190; BP diastolic 66–103
[2019-05-02] MEDS: ZOSYN 3.375GM+NS 50ML 50 ML IV SCH ×3 (04:42→21:20)
[2019-05-02 04:54] LABS: BASOPHILS % (AUTO) 0.8 % (0.0-5.0); HEMATOCRIT 38.6 % (36-48); LYMPHOCYTES % (AUTO) 38.6 % (21.0-51.0); MEAN CORPUSCULAR HGB CONC 33.5 g/dL (32.0-36.0); MEAN CORPUSCULAR VOLUME 95.7 fL (79-99); NEUTROPHILS % (AUTO) 47.6 % (40.0-77.0); NUCLEATED RED BLOOD CELLS 0.1 % (0.0-0.19); PLATELET COUNT (AUTO) 182 K/uL (130-400); RED BLOOD CELL COUNT(AUTO) 4.04 MIL/uL (4.00-5.50); WHITE BLOOD COUNT (AUTO) 4.1 K/uL (4.8-10.8)
[2019-05-02 05:13] LABS: ALBUMIN 2.6 g/dL (3.5-5.0); BILIRUBIN,TOTAL 1.3 mg/dL (0.2-1.0); CREATININE 0.6 mg/dL (0.5-1.5); POTASSIUM 4.3 mmol/L (3.5-5.1)
[2019-05-02] MEDS: ALBUTEROL SULFATE 0.083% 2.5 MG/3 ML INH IH PRN ×2 (06:12→18:13)
[2019-05-02] MEDS ORDERED: LACTATED RINGERS 1000ML 1,000 ML IV ONE (08:02)
[2019-05-02] MEDS ORDERED: HEPARIN SODIUM 1000UNIT/ML 10ML VIAL ONE (08:56)
[2019-05-02] MEDS: ENOXAPARIN SODIUM 40 MG/0.4 ML SYRINGE SQ SCH (09:00)
[2019-05-02] MEDS: ALPRAZOLAM 1 MG TAB PO SCH ×3 (09:00→21:21)
[2019-05-02] MEDS ORDERED: DEXAMETHASONE SOD PHOSPHATE 10MG/ML 1ML VIAL ONE (09:07)
[2019-05-02] MEDS ORDERED: SUCCINYLCHOLINE 200MG/10ML SYR ONE (09:07)
[2019-05-02] MEDS ORDERED: GLYCOPYRROLATE 1 MG/5 ML SYRINGE ONE (09:07)
[2019-05-02] MEDS ORDERED: MIDAZOLAM HCL 1 MG/ML 2ML VIAL ONE (09:07)
[2019-05-02] MEDS ORDERED: LIDOCAINE PF 2% 5ML ABBOJECT ONE (09:07)
[2019-05-02] MEDS ORDERED: ONDANSETRON HCL 4 MG/2 ML VIAL ONE (09:07)
[2019-05-02] MEDS ORDERED: NEOSTIGMINE 5MG/5ML SYR IV ONE (09:07)
[2019-05-02] MEDS ORDERED: ROCURONIUM 10MG/1ML SYR 10 MG/ML ML ONE (09:07)
[2019-05-02] MEDS ORDERED: PROPOFOL 10 MG/ML 20ML VIAL IV ONE (09:07)
[2019-05-02] MEDS ORDERED: FENTANYL CITRATE PF 50 MCG/1 ML 2ML VIAL ONE ×2 (09:08→10:30)
[2019-05-02] MEDS: HYDRALAZINE HCL 20 MG/ML VIAL IV PRN ×2 (11:42→17:24)
[2019-05-02] MEDS: ACETAMINOPHEN-CODEINE 300/30MG TAB PO PRN ×2 (11:47→21:21)
[2019-05-02] MEDS: FLUTICASONE PROPIONATE 50MCG/SPRAY 16 GM BOTTLE NS SCH ×2 (13:07→21:00)
[2019-05-02] MEDS: NIFEDIPINE ER 30 MG TAB PO SCH (13:07)
[2019-05-02] MEDS ORDERED: LABETALOL HCL 5 MG/ML 20ML VIAL IV PRN (14:00)
[2019-05-02] MEDS: D5W-1/2 NS/20MEQ KCL 1,000 ML IV SCH ×2 (15:29→23:55)
--- NOTE | 2019-05-02 17:12 | NUR ---
RD Follow up Pt s/p cholecystectomy. Heart Healthy diet in place. Rec to add Low fat diet modifier. No report of GI distress at this time. Improving nutritional labs. LBM 05/01/19. Pt monitored labs: BUN 5, Glu 116, Ca 8.2, T. Bili 1.3, ALT 107, Alk 336, Alb 2.6, Lipase 652. RD to continue to monitor. Please notify RD nutritional concerns arise. Thank you. Addendum: 05/02/19 at [address] Amended: Links added.
[2019-05-03] VITALS: BP 160/84
[2019-05-03] MEDS: ACETAMINOPHEN-CODEINE 300/30MG TAB PO PRN (03:21)
[2019-05-03 04:00] VITALS: BP 166/87
[2019-05-03] MEDS: HYDRALAZINE HCL 20 MG/ML VIAL IV PRN ×2 (04:25→12:47)
[2019-05-03] MEDS: ZOSYN 3.375GM+NS 50ML 50 ML IV SCH ×2 (04:28→12:41)
[2019-05-03 04:56] LABS: BASOPHILS % (AUTO) 0.6 % (0.0-5.0); EOSINOPHILS % (AUTO) 4.1 % (0.0-8.0); HEMATOCRIT 41.3 % (36-48); LYMPHOCYTES % (AUTO) 30.5 % (21.0-51.0); MEAN CORPUSCULAR HEMOGLOBIN 31.9 pg (27.0-33.0); MEAN CORPUSCULAR HGB CONC 33.3 g/dL (32.0-36.0); MEAN CORPUSCULAR VOLUME 95.8 fL (79-99); MONOCYTES % (AUTO) 8.6 % (3.0-13.0); NEUTROPHILS % (AUTO) 56.2 % (40.0-77.0); NUCLEATED RED BLOOD CELLS 0.1 % (0.0-0.19); PLATELET COUNT (AUTO) 207 K/uL (130-400); RED BLOOD CELL COUNT(AUTO) 4.31 MIL/uL (4.00-5.50); RED CELL DISTRIBUTION WIDTH 14.9 % (11.0-15.5); WHITE BLOOD COUNT (AUTO) 4.7 K/uL (4.8-10.8)
[2019-05-03 05:09] LABS: ALBUMIN 2.8 g/dL (3.5-5.0); BILIRUBIN,TOTAL 1.2 mg/dL (0.2-1.0); CREATININE 0.6 mg/dL (0.5-1.5); POTASSIUM 4.4 mmol/L (3.5-5.1); TOTAL PROTEIN, SERUM 6.5 g/dL (6.0-8.3)
[2019-05-03] MEDS: ALBUTEROL SULFATE 0.083% 2.5 MG/3 ML INH IH PRN ×2 (06:22→18:48)
[2019-05-03 08:20] VITALS: BP 156/85
[2019-05-03] MEDS: ENOXAPARIN SODIUM 40 MG/0.4 ML SYRINGE SQ SCH (08:23)
[2019-05-03] MEDS: ALPRAZOLAM 1 MG TAB PO SCH ×2 (08:24→14:49)
[2019-05-03] MEDS: FLUTICASONE PROPIONATE 50MCG/SPRAY 16 GM BOTTLE NS SCH (08:24)
[2019-05-03] MEDS: NIFEDIPINE ER 30 MG TAB PO SCH (08:24)
[2019-05-03 11:39] VITALS: BP 169/90
[2019-05-03] MEDS ORDERED: TYL3B PO (15:04)
[2019-05-03] MEDS ORDERED: NIFE30TA91 PO (15:04)
[2019-05-03] MEDS ORDERED: CEFD300C3 PO (15:59)
[2019-05-03 16:20] VITALS: BP 133/72
--- NOTE | 2019-05-03 18:45 | NUR ---
Patient discharged in stable condition. Patient given discharge instruction on after care zaid wong. Instructed to f/u with Dr. Bess on 05/05/19 @ 1015. F/U with Dr. Grullon in 3-5 days. Patient given oral antibiotic Cefdnir and Pain medication T#3 prescription. do not stop antibiotic even if you start feeling better. Instructed to come back to ER if SOB, chest pain, changes in mental status, severe pain or signs and symptoms of infection fever, chills, foul odor, increased redness drainage from wounds. Pt instructed ok to take shower. Do not remove Steri Strips until they fall off on their own. Pt with no other questions or concerns. IV removed to right AC. pt tolerated well.
== END 2019-05-03 19:33 | disposition home or self-care (01) | DRG 417 ==
LOC: EDH 01:25 → EDHIP 03:19 → OBSVTOIN 03:19 → 3DH 03:44
PROVIDERS: ADMIT Internal Medicine Critical Care Medicine; ATTEND Internal Medicine Critical Care Medicine
PROC: 0FT44ZZ Resection of Gallbladder, Percutaneous Endoscopic Approach (ICD-10-PCS; principal; 2019-05-02 09:20)
DX: K80.00 Calculus of gallbladder with acute cholecystitis without obstruction (principal); K85.10 Biliary acute pancreatitis without necrosis or infection; F10.20 Alcohol dependence, uncomplicated; I10 Essential (primary) hypertension; D72.829 Elevated white blood cell count, unspecified; E87.8 Other disorders of electrolyte and fluid balance, not elsewhere classified; E86.9 Volume depletion, unspecified; Z80.8 Family history of malignant neoplasm of other organs or systems; Z82.49 Family history of ischemic heart disease and other diseases of the circulatory system; Z82.5 Family history of asthma and other chronic lower respiratory diseases; Z83.3 Family history of diabetes mellitus
CPT/HCPCS: 36415; 36600; 71045; 74181; 76705; 78226; 80053; 80076; 81001; 82150; 82803; 82948; 83605; 83690; 83735; 84100; 84484; 85025; 85027; 85610; 85730; 88304; 93005; 94640; 94664; A9537; G0378; G0480; J0330; J0360; J1100; J1170; J1644; J1650; J2001; J2250; J2270; J2405; J2543; J2704; J2710; J3010; J3411; J3475; J3480; J3490; J7030; J7070; J7120

== ENCOUNTER 2021-05-22 17:27 | Emergency (ER) | payer OTHER ==
[~2021-05-22] VITALS: Ht 165.1 cm; Wt 65.8 kg
[~2021-05-22 17:27] MED LIST changes: +CEFD300C3 PO; -IBUP-2077 PO; +NIFE-40 PO; -NIFE30TA91 PO; +TYL3B PO
[2021-05-22 17:42] VITALS: BP 155/91
[2021-05-22] MEDS ORDERED: ACETAMINOPHEN 500 MG TABLET PO ONE (18:00)
[2021-05-22] MEDS ORDERED: MELO7.5T12 PO (19:08)
== END 2021-05-22 19:51 | disposition home or self-care (01) ==
LOC: EDH 17:27
DX: S39.012A Strain of muscle, fascia and tendon of lower back, initial encounter (principal); S20.212A Contusion of left front wall of thorax, initial encounter; M47.816 Spondylosis without myelopathy or radiculopathy, lumbar region; J44.9 Chronic obstructive pulmonary disease, unspecified; I10 Essential (primary) hypertension; Z79.899 Other long term (current) drug therapy; Z96.641 Presence of right artificial hip joint; V43.62XA Car passenger injured in collision with other type car in traffic accident, initial encounter; Y93.89 Activity, other specified; Y92.413 State road as the place of occurrence of the external cause; Y99.8 Other external cause status
CPT/HCPCS: 71045; 72100; 73010

== ENCOUNTER 2021-06-16 16:03 | Emergency (ER) | payer OTHER ==
[~2021-06-16] VITALS: Ht 175.3 cm; Wt 64.9 kg
[~2021-06-16 16:03] MED LIST changes: +MELO7.5T12 PO
[2021-06-16 16:04] VITALS: BP 181/99
[2021-06-16] MEDS ORDERED: IPRATROPIUM/ALBUTEROL SULFATE 3 ML SOLUTION IH ONE ×2 (16:30→18:00)
[2021-06-16 16:33] LABS: BASOPHILS % (AUTO) 0.6 % (0.0-5.0); EOSINOPHILS % (AUTO) 11.9 % (0.0-8.0); LYMPHOCYTES % (AUTO) 29.2 % (21.0-51.0); MEAN CORPUSCULAR HEMOGLOBIN 32.2 pg (27.0-33.0); MEAN CORPUSCULAR HGB CONC 33.4 g/dL (32.0-36.0); MEAN CORPUSCULAR VOLUME 96.3 fL (79-99); MONOCYTES % (AUTO) 5.9 % (3.0-13.0); NEUTROPHILS % (AUTO) 52.2 % (40.0-77.0); PLATELET COUNT (AUTO) 208 K/uL (130-400); RED BLOOD CELL COUNT(AUTO) 4.88 MIL/uL (4.00-5.50); RED CELL DISTRIBUTION WIDTH 13.7 % (11.0-15.5); WHITE BLOOD COUNT (AUTO) 6.6 K/uL (4.8-10.8)
[2021-06-16 17:36] LABS: CREATININE 0.6 mg/dL (0.5-1.5); POTASSIUM 3.6 mmol/L (3.5-5.1)
[2021-06-16 17:43] LABS: ALBUMIN 3.9 g/dL (3.5-5.0); BILIRUBIN,TOTAL 0.6 mg/dL (0.2-1.0); TOTAL PROTEIN, SERUM 8.5 g/dL (6.0-8.3)
[2021-06-16] MEDS ORDERED: DOXYCYCLINE HYCLATE 100 MG TABLET PO SCH (18:00)
[2021-06-16] MEDS ORDERED: PREDNISONE 20 MG TABLET PO ONE (18:00)
[2021-06-16] MEDS ORDERED: PREDNISONE 20 MG TABLET ONE (18:03)
[2021-06-16] MEDS ORDERED: DOXYCYCLINE HYCLATE 100 MG TABLET PO ONE (18:03)
[2021-06-16] MEDS ORDERED: PRED20TA3 PO (18:25)
[2021-06-16] MEDS ORDERED: DOXY-336 PO (18:25)
[2021-06-16] MEDS ORDERED: BENZ-39 PO (18:25)
[2021-06-16] MEDS ORDERED: ALBU6.7H9 IH (18:25)
[2021-06-16 18:48] VITALS: BP 175/92
== END 2021-06-16 18:49 | disposition home or self-care (01) ==
LOC: EDH 16:03
DX: J44.1 Chronic obstructive pulmonary disease with (acute) exacerbation (principal); I10 Essential (primary) hypertension; Z20.822 Contact with and (suspected) exposure to COVID-19; F17.200 Nicotine dependence, unspecified, uncomplicated; Z79.1 Long term (current) use of non-steroidal anti-inflammatories (NSAID); Z79.52 Long term (current) use of systemic steroids; Z79.899 Other long term (current) drug therapy
CPT/HCPCS: 36415; 71045; 80053; 84484; 85025; 87635; 93005; 94640; 99285; C9803